=== PATIENT | female | born 1975 | race Asian ===

== ENCOUNTER 2025-03-01 05:53 | Emergency (ER) | payer MEDICAID ==
[~2025-03-01] VITALS: Ht 167.6 cm; Wt 55.0 kg
--- NOTE | 2025-03-01 06:07 | Physician Documentation ---
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 Additionally patient is concerned she is "going to ." Daughter reports that patient does not normally take CBD/marijuana products. She does have a history of anxiety and takes hydroxyzine. She took hydroxyzine this morning without improvement of symptoms. Medication Reconciliation Allergies: Coded Allergies: No Known Allergies (Unverified , 03/01/25) Past Medical History Past Medical History: Anxiety Past Surgical History: noncontributory Smoking: Non-Smoker Drug Use: marijuana Lives In: Home Review of Systems All Other Systems at this time: Reviewed and Negative ROS anxiety as well as other positive symptoms as stated above in the HPI, otherwise all systems are reviewed and negative. Physical Exam Physical Exam Vital Signs: RN Vital Signs have been reviewed: Yes, Temperature: 97.9, Heart Rate: 75, Respiratory Rate: 18, BP: 102/54, Pulse Oximetry: 100, Weight: 55.000 Pulse Oximetry Reflects: adequate oxygenation Physical Exam VITALS: Reviewed and as above. GENERAL: Alert, no apparent distress. HEENT: Normocephalic, atraumatic, PERRL, EOMI, dry mucosa RESPIRATORY: Lungs clear, normal breath sounds, no respiratory distress. CHEST: No accessory muscle use, no retractions CV: Regular rate, rhythm, no edema, no murmur, No: JVD GI: Soft, non-tender, bowels sounds present, no rebound, guarding, or rigidity MUSCULOSKELETAL No deformities, no edema SKIN: Warm and dry, no rash NEURO: Oriented x4, No motor or sensory deficit PSYCH: Anxious mood and affect, no agitation Progress Progress Note 1040: Patient reports patient got up to go use the restroom but was still having some unsteadiness on her feet. However family comfortable taking the patient home. Results/Orders Reviewed/noted all lab results: Yes Results/Orders Completed Orders - OHLFS,ZEKE R MD Lorazepam Tablet (Ativan Tablet) (03/01/25 06:15) Quetiapine Tablet (Seroquel Tablet) (03/01/25 08:00) Quetiapine Tablet (Seroquel Tablet) (03/01/25 06:24) Vital Signs 03/01/25 03/01/25 03/01/25 03/01/25 05:57 06:06 06:20 07:46 Temp 97.9 Pulse 75 73 62 Resp 18 16 18 19 B/P (MAP) 102/54 114/72 (86) 95/54 (68) Pulse Ox 100 100 99 O2 Flow Rate 2.0 03/01/25 03/01/25 03/01/25 03/01/25 08:08 09:06 10:05 11:02 Temp 97.9 97.9 97.8 Pulse 52 54 55 Resp 16 16 16 16 B/P (MAP) 89/44 (59) 91/51 (64) 105/60 Pulse Ox 100 96 100 O2 Flow Rate 2.0 0 Medical Decision Making Additional information obtaine: old records (no prior visits. ) Findings Patient with anxiety and dizziness from a marijuana ingestion, patient was given a dose of Seroquel and Ativan in the emergency department she has remained hemodynamically stable patient has been observed, the patient will be discharged with instructions to follow up as an outpatient. The patient is school lunch monitor was interpreted as a sinus rhythm. Patient's prior hospitalizations have been reviewed. The patient's pulse oximetry was interpreted as adequate and normal. Differential Diagnosis Drug ingestion, vertigo, dehydration Departure Time of Disposition: 10:52 Disposition: 01 HOME / SELF CARE / HOMELESS Impression: Primary Impression: Marijuana ingestion Condition: Stable Discharge Instructions: Preventing Marijuana Misuse Additional Instructions: Avoid marijuana products in the future. Taking all medications as prescribed. Return to the ER for any other concerns. Education Educated: Patient Educated regarding: diagnosis, treatment, need for follow up Signature Scribe Signature: Scribed for Zeke Benton MD by Jhon Vizcaino . 03/01/25 06:21 Attestation: The note accurately reflects work and decisions made by me.Zeke Benton MD 03/01/25 17:33 ZEKE BENTON MD Mar 01, 2025 06:07 JHON ALVAREZ Mar 01, 2025 06:28
[2025-03-01 11:02] VITALS: BP 105/60; PULSE 55; RESP 16; TEMP 97.8; O2SAT 100
== END 2025-03-01 11:04 | disposition home or self-care (01) ==
LOC: ER 05:54
DX: R00.0 Tachycardia, unspecified (principal); T40.715A Adverse effect of cannabis, initial encounter; F41.9 Anxiety disorder, unspecified; F12.90 Cannabis use, unspecified, uncomplicated; Y92.89 Other specified places as the place of occurrence of the external cause
CPT/HCPCS: 99285; J7030; A4615